=== PATIENT | female | born 1985 | race Caucasian/White ===

== ENCOUNTER 2016-12-09 21:23 | Emergency (ER) | payer BC ==
[~2016-12-09] VITALS: Ht 170.2 cm; Wt 146.3 kg
[~2016-12-09 21:23] MED LIST: BACTRIM,SEPT1 TABLET PO; CEFTIN500 MG PO; FLEXERIL10 MG PO; FLOMAX0.4 MG PO; IBUPROFEN400 MG PO; KEFLEX500 MG PO; LOMOTIL TABLET1 EACH PO; MAALOX ADVANCE355 ML PO; METOPROLOL TART50 MG PO; MOTRIN IB200 MG PO; MOTRIN600 MG PO; NAPROSYN500 MG PO; NOHOMEMEDS; NORCO 7.5/321 TABLET PO; PERCOCET 5/31 TABLET PO; PERCOCET 7.51 TABLET PO; PHENTERMINE HCL30 MG PO; PREDNISONE10 MG PO; PRILOSEC20 MG PO; PROMETHAZINE HC25 M1 PO; TYLENOL EXTRA500 MG PO; ULTRAM50 MG PO; VALIUM5 MG PO; ZANTAC; ZOFRAN4 MG PO
[2016-12-09 22:24] LABS: ADD MIUA? NO; BILIRUBIN NEGATIVE; BLOOD NEGATIVE; COLOR YELLOW ((YELLOW)); GLUCOSE (STRIP) NEGATIVE; KETONES NEGATIVE; LEUKOCYTES NEGATIVE; NITRITE NEGATIVE; PROTEIN (STRIP) NEGATIVE; SPECIFIC GRAVITY 1.019 (1.000-1.030); UROBILINOGEN 0.2 MG/DL (0.2-1.0)
[2016-12-09 22:43] LABS: HEMATOCRIT 47.2 % (36.0-46.0); MCH 30.3 PG (29.0-34.0); MCHC 33.5 G/DL (30.0-36.0); MCV 90.6 FL (83-99); MEAN PLAT.VOLUME 10.2 uM^3 (9.5-12.4); PLATELET COUNT 295 K/uL (156-360); RBC DIS.WIDTH-CV 13.6 % (11.8-14.6); RBC DIS.WIDTH-SD 45.8 % (39-53); RED BLOOD COUNT 5.21 M/uL (3.80-5.20); WHITE BLOOD COUNT 11.9 K/uL (4.1-10.2)
[2016-12-09 22:55] LABS: CHLORIDE 106 mEq/L (99-109)
[2016-12-09 22:56] LABS: SODIUM 140 mEq/L (136-147)
[2016-12-09 22:57] LABS: GLUCOSE 90 mg/dL (70-99)
[2016-12-09 22:59] LABS: ANION GAP 6 MEQ/L (2-14)
[2016-12-09 23:01] LABS: GFR ESTIMATE (CALCULATED) > 59 mL/min/
[2016-12-09 23:02] LABS: UREA NITROGEN (BUN) 14 mg/dL (9-23)
[2016-12-09 23:14] LABS: QUANTITATIVE HCG < 4.0 MIU/ML
[2016-12-10] MEDS ORDERED: FIORICET 50-301 EACH PO (00:38)
[2016-12-10 00:57] VITALS: BP 165/86
== END 2016-12-10 00:58 | disposition home or self-care (01) ==
LOC: RME 21:23 → EME 21:23 → RME 12-10 00:58
PROVIDERS: Nurse Practitioner Family
DX: S09.90XA Unspecified injury of head, initial encounter (principal); W22.09XA Striking against other stationary object, initial encounter; I10 Essential (primary) hypertension; F17.200 Nicotine dependence, unspecified, uncomplicated
CPT/HCPCS: 70450; 80048; 81003; 84702; 85027; 99281; 99284